=== PATIENT | male | born 1970 | race Caucasian/White ===

== ENCOUNTER 2017-08-17 11:37 | Emergency (ER) | payer OTHER ==
[2017-08-17] MEDS ORDERED: ASPIRIN PO ONE (11:52)
--- NOTE | 2017-08-17 12:44 | XRay Report ---
ROUTINE CHEST, TWO VIEWS: HISTORY: chest pain, shortness of breath. The trachea, heart, mediastinal contour, lung danielson and bony thorax are unremarkable. IMPRESSION: Unremarkable chest x-ray.
[2017-08-17 13:13] LABS: Basophils # (Auto) 0.1 K/mm3 (0.0-0.1); Eosinophils # (Auto) 0.2 K/mm3 (0.0-0.4); Eosinophils % (Auto) 1.4 % (0.0-4.3); Hematocrit 42.3 % (35.5-45.6); Hemoglobin 14.2 gm/dl (11.8-15.2); Lymphocytes # (Auto) 2.8 K/mm3 (1.2-5.4); Lymphocytes % (Auto) 22.7 % (13.4-35.0); Mean Corpuscular HGB Conc 34 % (32-34); Mean Corpuscular Hemoglobin 27 pg (28-32); Mean Corpuscular Volume 81 fl (84-94); Monocytes # (Auto) 0.7 K/mm3 (0.0-0.8); Monocytes % (Auto) 5.6 % (0.0-7.3); Platelet Count 347 K/mm3 (140-440); Red Cell Distribution Width 13.8 % (13.2-15.2)
[2017-08-17] MEDS ORDERED: APRESOLINE IV ONE (13:33)
[2017-08-17 13:34] LABS: BUN/Creatinine Ratio 15; Blood Urea Nitrogen 12 mg/dL (9-20); Calcium 8.8 mg/dL (8.4-10.2); Hemolysis Index 10
[2017-08-17] MEDS ORDERED: BABY ASPIRIN ONE (13:54)
[2017-08-17] MEDS ORDERED: NORCO 5/325 PO ONE (14:24)
[2017-08-17] MEDS ORDERED: LASIX PO ONE (14:24)
--- NOTE | 2017-08-17 14:48 | Emergency Department Report ---
HPI - General Chief Complaint: Chest Pain Time Seen by Provider: 08/17/17 13:23 - HPI HPI: The patient is a 47-year-old male presents for evaluation of chest pain. The patient reports constant chest pain for the past 8 days, sharp in quality, worse with deep breaths, moderate severity, and associated with dyspnea and a nonproductive cough. The patient denies trauma to the chest, hemoptysis, unilateral leg swelling, oral contraceptive use, recent immobilization, history of DVT or PE, hx of recent cancer. ED Past Medical Hx - Past Medical History Previous Medical History?: Yes Hx GERD: Yes Additional medical history: Left leg pain - Surgical History Past Surgical History?: Yes Additional Surgical History: Left leg surgery, left ankle surgery - Social History Smoking Status: Never Smoker Substance Use Type: Alcohol, Prescribed - Medications Home Medications: Home Medications Medication Instructions Recorded Confirmed Last Taken Type Furosemide [Lasix] 20 mg PO QDAY #20 tablet 08/17/17 Unknown Rx amLODIPine [Norvasc] 5 mg PO DAILY #31 tab 08/17/17 Unknown Rx traMADol [Ultram 50 MG tab] 50 mg PO Q6HR PRN #15 tablet 08/17/17 Unknown Rx ED Review of Systems ROS: Stated complaint: CHEST PAIN Other details as noted in HPI Constitutional: denies: fever ENT: denies: throat or neck pain Respiratory: reports cough, shortness of breath Cardiovascular: reports: chest pain Endocrine: denies unexplained weight loss or gain Gastrointestinal: denies: abdominal pain, nausea Genitourinary: denies: dysuria Musculoskeletal: denies: leg swelling Skin: denies: rash Neurological: denies: headache Hematological/Lymphatic: denies: easy bleeding or easy bruising Psych: denies sadness or hopelessness Physical Exam - Physical Exam Vital Signs: Vital Signs 08/17/17 08/17/17 11:48 13:50 Temperature 98 F Pulse Rate 88 77 Respiratory 20 Rate Blood Pressure 168/101 132/81 O2 Sat by Pulse 97 Oximetry Physical Exam: General: well-nourished, well-developed, no acute distress Head: Normocephalic, atraumatic Eyes: normal sclera ENT: Mucous membranes are pink and moist Neck: trachea midline, neck supple, No neck stiffness, no cervical adenopathy Respiratory: Breath sounds equal bilaterally, no wheezing, rales, or rhonchi Cardio: S1 and S2 present, no murmurs, rubs, gallops, capillary refill is brisk Abdomen: Normoactive bowel sounds, soft abdomen, no rigidity, no guarding or rebound tenderness Chest WALL/Back: No tenderness to palpation of the chest wall, no CVA tenderness with percussion Musc: No pitting edema Skin: No rash Neuro: no facial drooping, normal speech Psych: Normal affect ED Course Vital Signs 08/17/17 08/17/17 11:48 13:50 Temperature 98 F Pulse Rate 88 77 Respiratory 20 Rate Blood Pressure 168/101 132/81 O2 Sat by Pulse 97 Oximetry ED Medical Decision Making - Lab Data Result diagrams: 08/17/17 13:00 08/17/17 13:00 - Medical Decision Making The patient was seen and examined by myself. The patient is placed on a desk monitor and continuous pulse ox. On initial evaluation, the patient was found to be in no distress. EKG was negative for findings suggestive of acute cardiac infarct. The patient given pain medicine. Labs and imaging are obtained. Chest x-ray is negative for pneumothorax, focal consolidation, pulmonary vascular congestion, pleural effusion, or other obvious acute cardiopulmonary disease process. Lab results exhibited mild leukocytosis, WBC 12, and otherwise lab were non-concerning including nml levels of 2 sets of troponin, and BNP of 100. CT angiogram of the chest is negative for aortic dissection, pulmonary embolism, or other emergent disease process The patient was reevaluated and reported that their symptoms were markedly improved. As the patient has a IVONNE risk score less than 2, and a well's score less than 2, the patient is at low risk of ACS or pulmonary emboli etiology of their symptoms. The patient is stable for discharge with outpatient follow-up. The patient is given follow-up and return instructions. The patient expressed understanding and agreed with the plan. The patient is discharged in stable condition. Critical care attestation.: If time is entered above; I have spent that time in minutes in the direct care of this critically ill patient, excluding procedure time. ED Disposition Clinical Impression: Acute chest pain, Hypertensive urgency Disposition: DC-01 TO HOME OR SELFCARE Is pt being admited?: No Does the pt Need Aspirin: No Condition: Stable Instructions: Chest Pain (ED), Hypertension (ED), Chronic Hypertension (ED) Referrals: [facility] [Outside] - 3-5 Days SOPHY ZAMORA MD [Staff Physician] - 3-5 Days Time of Disposition: 14:51
--- NOTE | 2017-08-17 16:05 | Cat Scan Report ---
FINAL REPORT EXAM: CT ANGIO CHEST HISTORY: chest pain COMPARISON: None. TECHNIQUE: Multiple contiguous axial images were obtained from the thoracic inlet to upper abdomen after administration of IV contrast. Reformatted sagittal and coronal images were available for review. FINDINGS: Medical devices: None. Thyroid: Normal. Lymph nodes: No significant mediastinal, hilar, or axillary lymphadenopathy. Vasculature: Patent pulmonary artery. No filling defect to suggest pulmonary embolism. Normal caliber of the thoracic aorta with a conventional branching pattern of the aortic arch. Heart: Normal heart size. Other mediastinal structures: Normal. Lung parenchyma: Minimal dependent atelectasis. No focal consolidation. Airways: Patent. No bronchiectasis. Pleura: No pleural effusion or pneumothorax. Chest wall and spine: No suspicious osseous lesions. No acute fracture or dislocation. Upper Abdomen: Normal. IMPRESSION: No evidence pulmonary embolism.
[2017-08-17 19:23] VITALS: BP 114/77
== END 2017-08-17 19:21 | disposition home or self-care (01) ==
LOC: ED 11:37
DX: I16.0 Hypertensive urgency (principal); K21.9 Gastro-esophageal reflux disease without esophagitis; R05 Cough
CPT/HCPCS: 36415; 71046; 71275; 80048; 83880; 84484; 85025; 93005; 93010; 96374; 99285; J0360; Q9967